=== PATIENT | female | born 1980 | race Caucasian/White ===

== ENCOUNTER 2018-12-06 13:16 | Emergency (ER) | payer MEDICAID, SELFPAY ==
[2018-12-06 13:17] VITALS: BP 155/95; PULSE 83; RESP 14; TEMP 36.2; O2SAT 98; BMI 31.4
--- NOTE | 2018-12-06 14:03 | ED.DCSUM_ITS ---
- ER Visit Summary Date of Service: 12/06/18 Chief Complaint: Wrist drop History of Present Illness: The patient is a 38 F who tells me that 2 days ago she awoke from sleep and was unable to fully extend her fingers or extend her wrist. She notes that the fourth and fifth finger as well as some of the back of the hand are numb. She notes some tingling slightly up into the forearm on the dorsal aspect. She is not sure if she slept. She is never had anything like this before. No headache. No known shoulder or upper arm injuries. Physical Examination: Afebrile vital signs stable Patient is unable to fully extend the fingers or extend at the she is able to make a fist. She has a negative Greg's test. There is no muscle wasting. Reported sensory changes on the fourth and fifth digit and over the part of the dorsum of the hand. She notes tingling over the distal aspect of the right posterior forearm. 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 I will place her in a cock-up splint. I will refer her to neurology for further nerve testing. She was advised that this may not ever resolve. Impression: 1. Acute ulnar nerve palsy This note was generated with [employer] dictation software. It may contain incorrect words, spelling, and punctuation that were not noted in review of the chart prior to signing ED Disposition - Plan for ED Patient: Disposition: Home or Assisted Living Instructions: Ulnar Nerve Palsy Referrals: Aguilar Archer MD [STAFF PHYSICIAN] - (call to arrange follow up)
== END 2018-12-06 14:17 | disposition home or self-care (01) ==
LOC: ED 14:07
PROVIDERS: Emergency Provider Emergency Medicine; Family Provider Family Medicine; PCP Family Medicine
DX: G56.20 Lesion of ulnar nerve, unspecified upper limb (principal)
CPT/HCPCS: 99283

== ENCOUNTER → 2020-03-18 10:13 | Outpatient (CLI) | payer MEDICAID, SELFPAY ==
--- NOTE | 2020-03-18 11:44 | NEURO ---
NCS and/or EMG Patient Report Ordering Doctor: Alejandro Harrington DATE OF SERVICE: 03/18/20 Indication: Bilateral hand pain, right greater than left, over the last 2 years. This is associated with numbness and tingling intermittently. Evaluate for entrapment neuropathy. Findings: Nerve conduction studies were performed in the right and left upper extremities. The right median motor study recording the abductor pollicis brevis showed a normal amplitude, prolonged distal latency and normal conduction velocity. The right ulnar motor study recording the abductor digiti minimi showed a normal amplitude, normal distal latency and normal conduction velocity. No conduction block or focal slowing was present across the elbow. The right median sensory response recording digit two showed a reduced amplitude, prolonged latency and markedly slowed conduction velocity. The right ulnar sensory response recording digit five showed a normal amplitude, latency and conduction velocity. The right radial sensory response recording over the extensor snuff box showed a normal amplitude, latency and conduction velocity. Right median-ulnar mixed palmar latencies showed a long median latency compared to the ulnar. The left median motor study recording the abductor pollicis brevis showed a normal amplitude, prolonged distal latency and borderline normal conduction velocity. The left ulnar motor study recording the abductor digiti minimi showed a normal amplitude, normal distal latency and normal conduction velocity. No conduction block or focal slowing was present across the elbow. The left median sensory response recording digit two showed a reduced amplitude, prolonged latency and markedly slowed conduction velocity. The left ulnar sensory response recording digit five showed a normal amplitude, latency and conduction velocity. The left radial sensory response recording over the extensor snuff box showed a normal amplitude, latency and conduction velocity. Left median-ulnar mixed palmar latencies showed a prolonged median latency compared to the ulnar. Needle EMG of the right upper extremity and cervical paraspinal muscles was performed. No denervation was seen in any muscle. In the right abductor pollicis brevis muscle, motor units were large amplitude, long duration and polyphasic with normal recruitment. All other examined muscles in the right upper extremity revealed normal motor unit morphology, activation, and recruitment patterns. Limited needle EMG of the left abductor pollicis brevis muscle was performed. No denervation was seen. Motor units were mildly polyphasic, but otherwise unremarkable. Impression: This is an abnormal study. There is electrophysiologic evidence of median neuropathy across the wrist in both upper extremities (moderate on the right; moderate on the left). The pathophysiology is predominantly demyelinating, though there is evidence of secondary sensory axon loss. These findings are compatible with the clinical diagnosis of carpal tunnel syndrome. In addition, there is no electrophysiologic evidence of a superimposed cervical radiculopathy or ulnar neuropathy in the right upper extremity. Alexsander Barker D.O.
== END ==
PROVIDERS: PCP Family Medicine; Referring Provider Family Medicine; Visit Provider Family Medicine
DX: R20.0 Anesthesia of skin (principal)
CPT/HCPCS: 95885; 95886; 95913